=== PATIENT | male | born 1960 | race Caucasian/White ===

== ENCOUNTER 2018-04-05 08:03 | Day surgery (SDC) | payer MEDICAID ==
[~2018-04-05] VITALS: Ht 180.3 cm; Wt 83.2 kg
[~2018-04-05 08:03] MED LIST: SODIUM CHLORIDE 0.9% 1,000 ML IV ONE
[2018-04-05] MEDS ORDERED: SODIUM CHLORIDE 0.9% 1,000 ML IV ONE (08:30)
[2018-04-05] MEDS ORDERED: TAMS0.4C32 PO (10:19)
[2018-04-05] MEDS ORDERED: DSS100 PO (10:19)
== END 2018-04-05 11:05 | disposition home or self-care (01) ==
LOC: SURGERY 08:03
PROVIDERS: ATTEND Internal Medicine Gastroenterology
DX: D12.2 Benign neoplasm of ascending colon (principal); K62.89 Other specified diseases of anus and rectum; K64.8 Other hemorrhoids; F17.210 Nicotine dependence, cigarettes, uncomplicated; N40.0 Benign prostatic hyperplasia without lower urinary tract symptoms; Z85.048 Personal history of other malignant neoplasm of rectum, rectosigmoid junction, and anus; Z93.3 Colostomy status; Z72.89 Other problems related to lifestyle; Z79.899 Other long term (current) drug therapy
CPT/HCPCS: 45380; 45385; 88305; 93005; C1769; J7030

== ENCOUNTER 2018-05-21 12:07 | Emergency (ER) | payer MEDICAID, OTHER ==
[~2018-05-21] VITALS: Ht 170.2 cm; Wt 72.7 kg
[~2018-05-21 12:07] MED LIST changes: +DSS100 PO; -SODIUM CHLORIDE 0.9% 1,000 ML IV ONE; +TAMS0.4C32 PO
[2018-05-21] MEDS ORDERED: PROPARACAINE/FLUORESCEIN SOD 0.5-0.25% 0.5 ML OPHTHALMIC SOLUTION OU ONE (14:45)
[2018-05-21 16:17] VITALS: BP 120/73
== END 2018-05-21 16:21 | disposition home or self-care (01) ==
LOC: EMS 12:09
DX: S00.31XA Abrasion of nose, initial encounter (principal); H57.8 Other specified disorders of eye and adnexa; W20.8XXA Other cause of strike by thrown, projected or falling object, initial encounter; Y93.89 Activity, other specified; Y92.89 Other specified places as the place of occurrence of the external cause; Y99.8 Other external cause status
CPT/HCPCS: 99283; Z7610